=== PATIENT | male | born 1985 | race Two or more races ===

== ENCOUNTER 2023-04-30 15:42 | Emergency (ER) | payer MEDICAID ==
[~2023-04-30] VITALS: Ht 170.2 cm; Wt 70.5 kg
[2023-04-30 15:57] VITALS: BP 106/71
== END 2023-04-30 18:02 | disposition left against medical advice (07) ==
LOC: ER 15:42
DX: R10.13 Epigastric pain (principal); Z53.21 Procedure and treatment not carried out due to patient leaving prior to being seen by health care provider